=== PATIENT | male | born 1990 | race Caucasian/White ===

== ENCOUNTER 2018-09-21 08:58 | Emergency (ER) | payer OTHER ==
--- NOTE | 2018-09-21 09:56 | EDM.PDOC ---
ED HPI GENERAL MEDICAL PROBLEM - General Chief Complaint: ENT Problem Stated Complaint: FLU [id number] Time Seen by Provider: 09/21/18 09:52 Source of Information: Reports: Patient History Limitations: Reports: No Limitations - History of Present Illness INITIAL COMMENTS - FREE TEXT/NARRATIVE: Patient comes emergency department today with a three-day complaint of cough and congestion as well as fever and body aches. He did receive his flu vaccine this year. His last Tylenol and ibuprofen as approximately 6:00 this morning. He has had some nausea and vomiting last night no diarrhea. No sore throat. Some headache with head congestion. No confusion no photophobia phonophobia. No visual acuity changes. No ear pain. No chest pain no shortness of breath but does have a dry hacking nonproductive cough. No abdominal pain. No nausea no vomiting. No diarrhea. No sores or lesions on any of his integumentary system. Does complain of fever and chills. Head Pain Score (Numeric/FACES): 4 - Related Data Allergies Allergy/AdvReac Type Severity Reaction Status Date / Time ciprofloxacin [From Cipro] Allergy Cannot Verified 09/21/18 09:28 Remember Home Meds: Home Meds Ibuprofen 200 mg PO PRN 09/21/18 [History] Phenylephrine/Acetaminophn/Pnm [Theraflu Cold-Sore Throat] 1 packet PO Q6H PRN 09/21/18 [History] Past Medical History HEENT History: Reports: None Cardiovascular History: Reports: None Respiratory History: Reports: None Gastrointestinal History: Reports: None Genitourinary History: Reports: None Neurological History: Reports: None Psychiatric History: Reports: None Endocrine/Metabolic History: Reports: None Hematologic History: Reports: None Immunologic History: Reports: None Oncologic (Cancer) History: Reports: None Dermatologic History: Reports: None - Infectious Disease History Infectious Disease History: Reports: None - Past Surgical History Head Surgeries/Procedures: Reports: None Musculoskeletal Surgical History: Reports: Other (See Below) Other Musculoskeletal Surgeries/Procedures:: ankle surgery with hardware Social & Family History - Family History Family Medical History: Noncontributory - Tobacco Use Smoking Status *Q: Never Smoker Second Hand Smoke Exposure: No - Caffeine Use Caffeine Use: Reports: None - Alcohol Use Days Per Week of Alcohol Use: 1 Number of Drinks Per Day: 1 Total Drinks Per Week: 1 - Recreational Drug Use Recreational Drug Use: No ED ROS ENT - Review of Systems Review Of Systems: ROS reveals no pertinent complaints other than HPI. ED EXAM, ENT - Physical Exam Exam: See Below Exam Limited By: No Limitations General Appearance: Alert, WD/WN, No Apparent Distress Eye Exam: Bilateral Eye: Normal Inspection, PERRL Ears: Normal External Exam, Normal Canal, Normal TMs Nose: Clear Rhinorrhea, Other (Mild erythema with swelling on the bilateral turbulence. Clear rhinorrhea.) Mouth/Throat: Normal Inspection, Normal Gums, Normal Lips, Normal Oropharynx, Normal Teeth Head: Atraumatic, Normocephalic Neck: Non-Tender, Lymphadenopathy (L), Lymphadenopathy (R) (Anterior chain lymphadenopathy bilaterally. ) Respiratory/Chest: No Respiratory Distress, Lungs Clear, Normal Breath Sounds, No Accessory Muscle Use Cardiovascular: Normal Peripheral Pulses, Regular Rate, Rhythm GI/Abdominal: Normal Bowel Sounds, Soft (Male) Exam: Deferred Rectal (Males) Exam: Deferred Back: Normal Inspection Extremities: Normal Inspection, Non-Tender Neurological: Alert, Oriented, CN II-XII Intact Psychiatric: Normal Affect Skin: Intact, No Rash, Other (Hot flushed and dry) Course - Vital Signs Last Recorded V/S: Last Vital Signs Temp 37.9 C 09/21/18 09:31 Pulse 82 09/21/18 09:31 Resp 16 09/21/18 09:31 BP 121/70 09/21/18 09:31 Pulse Ox 99 09/21/18 09:31 - Orders/Labs/Meds Orders: Active Orders 24 hr Category Date Time Status CULTURE STREP A CONFIRMATION [RM] Stat Lab 09/21/18 09:39 Results STREP SCRN A RAPID W CULT CONF [RM] Stat Lab 09/21/18 09:39 Results Labs: Microbiology 09/21/18 09:39 Influenza Type A Antigen Screen - Final Nasal, Left Positive Influenza A Ag Influenza Type B Antigen Screen - Final NEGATIVE INFLUENZA B VIRUS AG 09/21/18 09:39 Group A Streptococcus Rapid Screen - Final Throat NEGATIVE STREP A SCREEN - Re-Assessments/Exams Free Text/Narrative Re-Assessment/Exam: 09/21/18 10:13 Influenza A positive. The patient is outside of the ordinate our window for Tamiflu administration. Symptomatic management is paramount at this time. No school or work until fever free for 24 hours. He was understanding this and his questions are answered. Departure - Departure Time of Disposition: 10:05 Disposition: Home, Self-Care 01 Clinical Impression: Influenza - Discharge Information Instructions: Upper Respiratory Infection, Adult, [id number], Influenza, Adult, [id number] Forms: ED Department Discharge Additional Instructions: Tylenol and or Ibuprofen regular dosing to control fever body aches and pain. Push oral fluids as much as possible over the next few days. Rest as much as possible. Unable to return to work or school until 24hrs of fever free. Good hand hygiene over the next few days. Return to the ED if new or worsening symptoms. Follow up with primary care provider in the next 4-6days if not improving sooner if worse. - My Orders Last 24 Hours: My Active Orders 09/21/18 09:39 CULTURE STREP A CONFIRMATION [RM] Stat STREP SCRN A RAPID W CULT CONF [] Stat - Assessment/Plan Last 24 Hours: My Active Orders 09/21/18 09:39 CULTURE STREP A CONFIRMATION [RM] Stat STREP SCRN A RAPID W CULT CONF [] Stat Assessment:: Influenza A Plan: Tylenol and or Ibuprofen regular dosing to control fever body aches and pain. Push oral fluids as much as possible over the next few days. Rest as much as possible. Unable to return to work or school until 24hrs of fever free. Good hand hygiene over the next few days. Return to the ED if new or worsening symptoms. Follow up with primary care provider in the next 4-6days if not improving sooner if worse.
== END 2018-09-21 10:18 | disposition home or self-care (01) ==
LOC: DL.ED 08:58
DX: J10.1 Influenza due to other identified influenza virus with other respiratory manifestations (principal); Z88.1 Allergy status to other antibiotic agents
CPT/HCPCS: 87081; 87430; 87804; 99284